=== PATIENT | female | born 1995 | race African-American/Black ===

== ENCOUNTER 2017-06-24 01:06 | Emergency (ER) | payer MEDICAID ==
[~2017-06-24] VITALS: Ht 170.2 cm; Wt 80.3 kg
[2017-06-24 05:50] VITALS: BP 130/85
[2017-06-24] MEDS ORDERED: cefTRIAXone W LIDOCAINE 1 GM IM IM ONE (06:30)
[2017-06-24] MEDS ORDERED: DEXAMETHASONE SOD PHOS 10MG/1ML VIAL INJ IM ONE (06:30)
[2017-06-24] MEDS ORDERED: methylPREDNISolone SOD SUCC 125 MG/2 ML VL IM ONE (07:00)
[2017-06-24] MEDS ORDERED: cefTRIAXone SOD 1,000 MG VL ONE (07:07)
== END 2017-06-24 07:19 | disposition home or self-care (01) ==
LOC: ER 01:06 → EDBD 01:06 → ER 07:19
DX: J03.90 Acute tonsillitis, unspecified (principal)
CPT/HCPCS: 96372; 99284; J0696; J2930

== ENCOUNTER 2018-03-08 15:55 | Emergency (ER) | payer MEDICAID ==
[2018-03-08 16:05] VITALS: BP 135/93
[2018-03-08] MEDS: FLUORESCEIN SOD 1 MG TEST STRIP ONE (21:03)
[2018-03-08] MEDS: GENTAMICIN SULF 0.3% OPTH(EYE) OINT 3.5GM EACHEYE ONE (21:45)
[2018-03-08] MEDS: TETRACAINE HCL 0.5% OPTH(EYE) SOLN 4ML RIGHTEYE ONE (21:45)
[2018-03-08] MEDS: CIPROFLOXACIN 0.3%OPTH(EYE) SOL 5ML ONE (21:52)
[2018-03-08] MEDS: CIPROFLOXACIN 0.3%OPTH(EYE) SOL 5ML EACHEYE ONE (21:52)
== END 2018-03-08 21:54 | disposition home or self-care (01) ==
LOC: ER 15:58
DX: S00.212A Abrasion of left eyelid and periocular area, initial encounter (principal); S00.211A Abrasion of right eyelid and periocular area, initial encounter; H10.33 Unspecified acute conjunctivitis, bilateral; X58.XXXA Exposure to other specified factors, initial encounter; Y93.01 Activity, walking, marching and hiking; Y92.89 Other specified places as the place of occurrence of the external cause; Y99.8 Other external cause status

== ENCOUNTER 2018-07-23 23:11 | Emergency (ER) | payer MEDICAID ==
[~2018-07-23] VITALS: Ht 162.6 cm; Wt 86.2 kg
[2018-07-23 23:39] VITALS: BP 146/80
== END 2018-07-24 01:39 | disposition left against medical advice (07) ==
LOC: ER 23:11
DX: R20.0 Anesthesia of skin (principal); Z53.21 Procedure and treatment not carried out due to patient leaving prior to being seen by health care provider
CPT/HCPCS: 81025